=== PATIENT | male | born 1970 | race Caucasian/White ===

== ENCOUNTER 2017-08-10 16:31 | Emergency (ER) | payer OTHER ==
[~2017-08-10] VITALS: Ht 175.3 cm; Wt 104.0 kg
[~2017-08-10 16:31] MED LIST: BSP15 PO; CLON1TAB3 PO; CYM60 PO; LISI20TA3 PO
[2017-08-10 16:37] VITALS: TEMP 36.7; Ht 175.3 cm; Wt 104.0 kg
[2017-08-10] MEDS ORDERED: SODIUM CHLORIDE 0.9% 1000ML 1,000 ML IV STA (16:53)
--- NOTE | 2017-08-10 16:55 | EMERGENCY ROOM VISIT NOTE ---
History Report prepared by Asaf: Saúl Taylor Under the Supervision of: Dr. Hollis Miranda M.D. First contact with patient: 16:44 Chief Complaint: SYNCOPE (NEAR SYNCOPE) Stated Complaint: HTN, DIZZINESS, PASSED OUT History of Present Illness The patient is a 47 year old male who presents to the Emergency Room with complaints of multiple syncopal episodes that occurred yesterday. The patient states that he had two syncopal episodes yesterday. Today he is very dizzy and is having balance issues. He is also complaining of "head pressure." The patient states that he has had syncopal issues several years ago when he was followed by a neurologist. He has not had passed out in quite some time. He notes that he knew the syncopal episodes were going to occur because his vision fixated on one space and his lips went numb prior to it happening. He denies any hyperventilation. The patient continued to complain about lower back pain. The patient is on Cymbalta, but he does not feel it is working currently. He denies any suicidal or homicidal ideation. Source of History: patient Onset: Yesterday Position: head Symptom Intensity: 2 episodes Quality: other (Syncope) Associated Symptoms: + headache (with Dizziness) Review of Systems See HPI for pertinent positives & negatives. A total of 10 systems reviewed and were otherwise negative. Past Medical & Surgical Medical Problems: (1) HTN (hypertension) HTN (hypertension) Patient notes a history of "nerve issues." Family History Hypertension Social History Alcohol Use: none Marital Status: Occupation Status: employed Current/Historical Medications Scheduled Amlodipine (Norvasc), 5 MG PO DAILY Clonazepam (Klonopin), 0.5 MG PO BID Duloxetine Hcl (Cymbalta), 60 MG PO BID Gabapentin (Neurontin), 200 MG PO BID Levothyroxine Sodium (Levothyroxine Sodium), 50 MCG PO DAILY Lisinopril (Lisinopril), 40 MG PO DAILY Scheduled PRN Lorazepam (Ativan), 1 MG PO Q6H PRN for Anxiety and/or Sedation Allergies Coded Allergies: Hydrocodone (Verified Allergy, Intermediate, RASH/HIVES, 08/10/17) Physical Exam Vital Signs Date Time Temp Pulse Resp B/P (MAP) Pulse Ox O2 Delivery O2 Flow Rate FiO2 08/10/17 18:48 90 18 156/96 99 Room Air 08/10/17 17:08 92 16 148/94 98 Room Air 111 155/100 115 154/97 08/10/17 17:08 98 Room Air 08/10/17 17:08 98 Room Air 08/10/17 16:49 97 08/10/17 16:37 36.7 106 16 155/104 97 Room Air Physical Exam GENERAL: Awake, alert, does not make eye contact on exam. HENT: Normocephalic, atraumatic. Oropharynx unremarkable. EYES: Normal conjunctiva. Sclera non-icteric. NECK: Supple. No nuchal rigidity. FROM. No JVD. RESPIRATORY: Clear to auscultation. CARDIAC: Regular rate, normal rhythm. Extremities warm and well perfused. Pulses equal. ABDOMEN: Soft, non-distended. No tenderness to palpation. No rebound or guarding. No masses. RECTAL: Deferred. MUSCULOSKELETAL: Chest examination reveals no tenderness. The back is symmetrical on inspection without obvious abnormality. There is no CVA tenderness to palpation. No joint edema. LOWER EXTREMITIES: Calves are equal size bilaterally and non-tender. No edema. No discoloration. NEURO: Normal sensorium. No sensory or motor deficits noted. SKIN: No rash or jaundice noted. PSYCH: Flat affect, will not make eye contact. Denies HI, SI Medical Decision & Procedures ER Provider Diagnostic Interpretation: Radiology results as stated below per my review and radiologist interpretation: HEAD WITHOUT CONTRAST (CT) CT DOSE: 537.48 mGy.cm HISTORY: Mental status change Pt c/o AMS TECHNIQUE: Multiaxial CT images of the head were performed without the use of intravenous contrast. A dose lowering technique was utilized adhering to the principles of ALARA. Comparison: None. Findings: The paranasal sinuses and mastoid air cells are clear. The calvarium and skull base are intact. The ventricles and sulci are within normal limits. There is no mass, hematoma, midline shift, or acute infarct. Impression: No acute intracranial abnormality. The above report was generated using voice recognition software. It may contain grammatical, syntax or spelling errors. Electronically signed by: Colby Carrera M.D. 08/10/2017 5:34 PM Dictated Date/Time: 08/10/2017 5:30 PM Laboratory Results 08/10/17 16:45 Red Blood Count 4.94, Mean Corpuscular Volume 90.1, Mean Corpuscular Hemoglobin 31.6, Mean Corpuscular Hemoglobin Concent 35.1, Mean Platelet Volume 10.3, Neutrophils (%) (Auto) 57.8, Lymphocytes (%) (Auto) 30.3, Monocytes (%) (Auto) 9.9, Eosinophils (%) (Auto) 1.4, Basophils (%) (Auto) 0.5, Neutrophils # (Auto) 4.24, Lymphocytes # (Auto) 2.23, Monocytes # (Auto) 0.73, Eosinophils # (Auto) 0.10, Basophils # (Auto) 0.04 08/10/17 16:45 Test 08/10/17 16:45 08/10/17 17:00 08/10/17 17:36 White Blood Count 7.35 K/uL (4.8-10.8) Red Blood Count 4.94 M/uL (4.7-6.1) Hemoglobin 15.6 g/dL (14.0-18.0) Hematocrit 44.5 % (42-52) Mean Corpuscular Volume 90.1 fL (80-100) Mean Corpuscular Hemoglobin 31.6 pg (25-34) Mean Corpuscular Hemoglobin Concent 35.1 g/dl (32-36) Platelet Count 284 K/uL (130-400) Mean Platelet Volume 10.3 fL (7.4-10.4) Neutrophils (%) (Auto) 57.8 % Lymphocytes (%) (Auto) 30.3 % Monocytes (%) (Auto) 9.9 % Eosinophils (%) (Auto) 1.4 % Basophils (%) (Auto) 0.5 % Neutrophils # (Auto) 4.24 K/uL (1.4-6.5) Lymphocytes # (Auto) 2.23 K/uL (1.2-3.4) Monocytes # (Auto) 0.73 K/uL (0.11-0.59) Eosinophils # (Auto) 0.10 K/uL (0-0.5) Basophils # (Auto) 0.04 K/uL (0-0.2) RDW Standard Deviation 41.8 fL (36.4-46.3) RDW Coefficient of Variation 12.7 % (11.5-14.5) Immature Granulocyte % (Auto) 0.1 % Immature Granulocyte # (Auto) 0.01 K/uL (0.00-0.02) Prothrombin Time 10.2 SECONDS (9.0-12.0) Prothromb Time International Ratio 1.0 (0.9-1.1) Activated Partial Thromboplast Time 26.4 SECONDS (21.0-31.0) Partial Thromboplastin Ratio 1.0 Anion Gap 6.0 mmol/L (3-11) Est Creatinine Clear Calc Drug Dose 89.4 ml/min Estimated GFR () 80.9 Estimated GFR (Non- 69.8 BUN/Creatinine Ratio 6.9 (10-20) Calcium Level 9.1 mg/dl (8.5-10.1) Phosphorus Level 3.3 mg/dl (2.5-4.9) Magnesium Level 2.3 mg/dl (1.8-2.4) Thyroid Stimulating Hormone (TSH) 4.280 uIu/ml (0.300-4.500) Lyme Disease IgG Antibody NEG (NEG) Monoscreen NEG (NEG) Influenza Type A Antigen Neg for Influ A (NEG) Influenza Type B Antigen Neg for Influ B (NEG) Ethyl Alcohol mg/dL < 3.0 mg/dl (0-3) Labs reviewed by ED physician. Medications Administered Medications (Trade) Dose Ordered Sig/Angel Luis Route Start Time Stop Time Status Last Admin Dose Admin Sodium Chloride 1,000 ml @ 999 mls/hr Q1H1M STAT IV 08/10/17 16:53 08/10/17 17:53 DC 08/10/17 18:11 999 MLS/HR ED Course 1646: Past medical records reviewed. The patient was evaluated in room C11B. A complete history and physical examination was performed. 1653: Ordered Sodium Chloride 1000 mL @ 999 mL/hr IV. 1701: Ordered Lorazepam 1 mg IV. 1751: I discussed the case with Dr. Mantilla - Neurology. She will follow up with the patient in the outpatient office. 1803: Upon reexamination the patient is too busy watching TV to discuss results with met. I discussed results and treatment plan with the patient's and daughter verbalizes agreement and understanding. The patient is ready for discharge. Medical Decision Differential diagnosis: Etiologies such as vasovagal event, infection, hypoglycemia, electrolyte abnormalities, cardiac sources, intracerebral event, toxicologic, neurologic, as well as others were entertained. This is a 47-year-old male who presents emergency department complaining of vague symptoms. Patient reports she has had 2 syncopal episodes yesterday however talking with his family he has been having these episodes for quite some time. The patient was given normal saline bolus in the emergency department and appeared to improve his symptoms. He is more responsive than when he originally came in. The patient was angry over my line of questioning in regards to alcohol and drugs however stress I questioned a whole host of reasons that this could be happening including Lyme disease. I will note the patient is equivocal and his Lyme test. I stressed the need for follow-up in the next 48 hours. The patient's wants to have a follow-up with neurology so I did discuss the case with Dr. Campos. He does not have an elevation in his white blood cell count and I feel he is well enough to be discharged home. He was given a short dose of Ativan for when these episodes occur. Medication Reconcilliation Current Medication List: was personally reviewed by me Blood Pressure Screening Patient's blood pressure: Elevated blood pressure Blood pressure disposition: Referred to PCP Consults Time Called: 1746 Consulting Physician: Dr. Mantilla - Neurology Returned Call: 1751 I discussed the case with Dr. Mantilla - Neurology. She will follow up with the patient in the outpatient office. Impression Primary Impression: Syncope Scribe Attestation The scribe's documentation has been prepared under my direction and personally reviewed by me in its entirety. I confirm that the note above accurately reflects all work, treatment, procedures, and medical decision making performed by me. Departure Information Dispostion Home / Self-Care Prescriptions Lorazepam (ATIVAN) 1 Mg Tab 1 MG PO Q6H Y for Anxiety and/or Sedation, #6 TAB Prov: Hollis Miranda MD 08/10/17 Referrals Federico Cool M.D. (PCP) Forms HOME CARE DOCUMENTATION FORM, IMPORTANT VISIT INFORMATION Patient Instructions [facility] Additional Instructions Follow up with Dr Kimbrough's office No driving until follow up You were found to have an elevated blood pressure today (>120 sytolic or >90 diastolic). Per medicare guidelines, you need to follow up with this blood pressure screening with your Primary Care Physician (PCP). For a new PCP call [phone]. You received narcotic or benzodiazepene medication while in the emergency room today. This is an addictive medication that may cause drowziness as well as constipation. Do not drive, operate heavy machinery, or drink alcohol under the influence of this medication. Culture results are usually available in approx 48 hours You have been examined and treated today on an emergency basis only. This is not a substitute for, or an effort to provide, complete comprehensive medical care. It is impossible to recognize and treat all injuries or illnesses in a single emergency department visit. It is therefore important that you follow up closely with Dr Cool. Call as soon as possible for an appointment. Thank you for your time and consideration. I look forward to speaking with you again soon. Please don't hesitate to call us if you have any questions. Problem Qualifiers Primary Impression: Syncope Syncope type: unspecified Qualified Codes: R55 - Syncope and collapse
[2017-08-10] MEDS ORDERED: LORAZEPAM 2 MG/ML 1 ML VIAL IV STA (17:01)
[2017-08-10 17:03] LABS: BASO % 0.5 %; BASO ABS # 0.04 K/uL (0-0.2); EOS % 1.4 %; HEMATOCRIT 44.5 % (42-52); HEMOGLOBIN 15.6 g/dL (14.0-18.0); IG# 0.01 K/uL (0.00-0.02); LYMPH % 30.3 %; LYMPH ABS # 2.23 K/uL (1.2-3.4); MEAN CELL VOLUME 90.1 fL (80-100); MEAN CORPUSCULAR HEMOGLOBIN 31.6 pg (25-34); MEAN CORPUSCULAR HGB CONC 35.1 g/dl (32-36); MEAN PLATELET VOLUME 10.3 fL (7.4-10.4); MONO % 9.9 %; MONO ABS # 0.73 K/uL (0.11-0.59); NEUT % 57.8 %; NEUT ABS # 4.24 K/uL (1.4-6.5); PLATELET COUNT 284 K/uL (130-400); RED CELL DISTRIBUTION WIDTH CV 12.7 % (11.5-14.5); RED CELL DISTRIBUTION WIDTH SD 41.8 fL (36.4-46.3); WHITE BLOOD COUNT 7.35 K/uL (4.8-10.8)
[2017-08-10 17:08] VITALS: O2SAT 98
[2017-08-10 17:12] LABS: PTT PATIENT 26.4 SECONDS (21.0-31.0)
[2017-08-10 17:15] LABS: CALCIUM 9.1 mg/dl (8.5-10.1); CREATININE 1.24 mg/dl (0.60-1.40); POTASSIUM 3.6 mmol/L (3.5-5.1)
[2017-08-10] MEDS ORDERED: DULO60CA44 PO (17:19)
[2017-08-10] MEDS ORDERED: CLON0.5T3 PO (17:19)
[2017-08-10] MEDS ORDERED: AMLO-110 PO (17:19)
[2017-08-10] MEDS ORDERED: GABA-112 PO (17:19)
[2017-08-10] MEDS ORDERED: LSN40 PO (17:19)
[2017-08-10] MEDS ORDERED: LEVO50TA6 PO (17:19)
[2017-08-10 17:22] LABS: MONOSPOT NEG (NEG)
[2017-08-10 17:27] LABS: PHOSPHORUS 3.3 mg/dl (2.5-4.9)
--- NOTE | 2017-08-10 17:36 | DIAGNOSTIC IMAGING REPORT ---
HEAD WITHOUT CONTRAST (CT) CT DOSE: 537.48 mGy.cm HISTORY: Mental status change Pt c/o AMS TECHNIQUE: Multiaxial CT images of the head were performed without the use of intravenous contrast. A dose lowering technique was utilized adhering to the principles of ALARA. Comparison: None. Findings: The paranasal sinuses and mastoid air cells are clear. The calvarium and skull base are intact. The ventricles and sulci are within normal limits. There is no mass, hematoma, midline shift, or acute infarct. Impression: No acute intracranial abnormality. The above report was generated using voice recognition software. It may contain grammatical, syntax or spelling errors. Electronically signed by: Colby Carrera M.D. 08/10/2017 5:34 PM Dictated Date/Time: 08/10/2017 5:30 PM
[2017-08-10 17:50] LABS: INFLUENZA B ANTIGEN Neg for Influ B (NEG)
[2017-08-10] MEDS ORDERED: ATV/1 PO (18:07)
[2017-08-10 18:48] VITALS: BP 156/96; PULSE 90; O2SAT 99
[2017-08-13 17:26] LABS: EBV EARLY ANTIGEN AB < 9.00 U/ML
== END 2017-08-10 18:51 | disposition home or self-care (01) ==
LOC: C.EDB 16:33 → C.EDC 18:51
DX: R55 Syncope and collapse (principal); R42 Dizziness and giddiness; R26.9 Unspecified abnormalities of gait and mobility; M54.5 Low back pain; R51 Headache; I10 Essential (primary) hypertension; Z79.899 Other long term (current) drug therapy; Z88.5 Allergy status to narcotic agent; Z82.49 Family history of ischemic heart disease and other diseases of the circulatory system